=== PATIENT | female | born 1945 | race Caucasian/White ===

== ENCOUNTER 2017-08-12 15:50 | Emergency (ER) | payer MEDICARE, OTHER ==
[2017-08-12 16:22] VITALS: BP 119/83
--- NOTE | 2017-08-12 17:48 | UC ---
Zachary Johnson Natalie, scribed for Blake Martin MD on 08/12/17 at 1748 . Shortness of Breath HPI - HPI Summary HPI Summary: The pt is a 72 y/o F presenting to c/o generalized weakness and SOB starting a week ago. She states, my legs and arms feel like a hundred pounds and everything is draining. The pain is rated /10. Pt additionally c/o neck pain ( under skull), eye pain, and constipation. Pt denies fever body aches, chills, nasal congestion, abdominal pain, melena, hematuria, and LE edema. She has had similar previous episodes due to past neck and shoulder injury. She has hx of asthma and has been using her inhaler more often than usual. The pts prescriptions have been changed a few times in the last month. - History of Current Complaint Stated Complaint: SOB,WEAKNESS Time Seen by Provider: 08/12/17 16:05 Hx Obtained From: Patient Onset/Duration: Lasting Days - started a week ago, Still Present Timing: Constant Current Severity: Moderate Alleviating Factors: Nothing Associated Signs & Symptoms: Positive: Other - POSITIVE: neck pain (under skull) , eye pain, constipation; fever body aches, chills, nasal congestion, abdominal pain, melena, hematuria, and LE edema - Allergy/Home Medications Allergies/Adverse Reactions: Allergies Allergy/AdvReac Type Severity Reaction Status Date / Time Hydromorphone AdvReac Altered Verified 08/12/17 16:26 Mental Status Home Medications: Home Medications Albuterol inh POWDER (NF) [Proair Respiclick] 108 mcg IN PRN 08/12/17 [History] Atorvastatin* [Lipitor 40 MG*] 1 tab PO BEDTIME 08/12/17 [History Confirmed ] Diltiazem XR EXTEND Releas(NF) [Cartia XR (NF)] 120 mg PO DAILY 08/12/17 [ History Confirmed 08/12/17] Gabapentin CAP(*) [Neurontin 100 mg CAP(*)] 1 cap PO BID 08/12/17 [History Confirmed 08/12/17] Lisinopril/HCTZ 20/12.5(NF) [Zestoretic 20/12.5(NF)] 1 tab PO DAILY 08/12/17 [ History Confirmed 08/12/17] metFORMIN* [Glucophage 500 MG TAB *] 1 tab PO DAILY 08/12/17 [History Confirmed 08/12/17] PMH/Surg Hx/FS Hx/Imm Hx Respiratory History: Asthma Other History Of: Negative For: Anticoagulant Therapy - Surgical History Surgery Procedure, Year, and Place: 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 C7 DISC HERNIATION, CERVICAL FUSION - Social History Substance Use Type: None Review of Systems Constitutional: Other - NEGATIVE: fever, chills Eyes: Other - eye pain ENT: Other - NEGATIVE: nasal congestion Respiratory: Shortness Of Breath Gastrointestinal: Other - POSITIVE: constipation; NEGATIVE: abdominal pain, melena Genitourinary: Other - NEGATIVE: hematuria Motor: Weakness All Other Systems Reviewed And Are Negative: Yes Physical Exam Triage Information Reviewed: Yes Appearance: Well-Appearing, No Pain Distress Vital Signs: Initial Vital Signs Temp 98 F 08/12/17 16:18 Pulse 91 08/12/17 16:18 Resp 16 08/12/17 16:18 BP 119/83 08/12/17 16:18 Pulse Ox 97 08/12/17 16:18 Vital Signs Reviewed: Yes Eye Exam: Normal ENT: Positive: Normal ENT inspection Neck: Positive: Supple, Other: - tenderness in upper neck Respiratory: Positive: Other: - CTA, breath sounds present Cardiovascular: Positive: RRR Abdomen Description: Positive: Nontender, Soft Bowel Sounds: Positive: Present Musculoskeletal Exam: Normal Musculoskeletal: Positive: Strength Intact, ROM Intact Neurological: Positive: Other: - normal, sensory/motor intact, A&O x3 Psychological: Positive: Other: - affect/mood appropriate Skin: Positive: Other - warm, color reflects adequate perfusion, dry Diagnostics - EKG Cardiac Rate: NL Cardiac Rhythm: Sinus: Normal - 88 BPM Ectopy: None ST Segment: Normal Shortness of Breath Dx - Course Course Of Treatment: Medications reviewed. Allergies noted. RECOMMENDED ED EVAL. PATIENT AGREED. - Differential Dx/Diagnosis Provider Diagnoses: WEAKNESS. SHORTNESS OF BREATH. NECK PAIN Discharge - Discharge Plan Condition: Stable Disposition: HOME Patient Education Materials: Weakness (ED), Dyspnea (ED), Neck Pain (ED) Referrals: Marietta Jin MD [Primary Care Provider] - Additional Instructions: GO DIRECTLY TO THE EMERGENCY DEPARTMENT FOR FURTHER EVALUATION OF YOUR WEAKNESS , SHORTNESS OF BREATH AND NECK PAIN. The documentation as recorded by the Zachary coffman Natalie accurately reflects the service I personally performed and the decisions made by me, Blake Martin MD.
== END 2017-08-12 16:40 | disposition home or self-care (01) ==
LOC: UCEAST 15:50
DX: R06.02 Shortness of breath (principal); R53.1 Weakness; M54.2 Cervicalgia
CPT/HCPCS: 93005; 99212; G0463

== ENCOUNTER 2017-08-12 16:56 | Emergency (ER) | payer MEDICARE ==
[2017-08-12] MEDS ORDERED: NS 0.9% 500 ML* 500 ML IV ONE (19:32)
[2017-08-12 19:48] LABS: ABS Basophils 0.1 10^3/ul (0-0.2); ABS Eosinophils 0.6 10^3/ul (0-0.6); ABS Lymphocytes 3.2 10^3/ul (1.0-4.8); ABS Monocytes 0.7 10^3/ul (0-0.8); ABS Neutrophils 4.2 10^3/ul (1.5-7.7); ABS Nucleated RBC 0 10^3/ul; Eosinophil % 6.4 % (0-6); Hematocrit 42 % (35-47); Hemoglobin 14.2 g/dl (12.0-16.0); Lymphocyte % 36.7 % (25-47); Mean Corpuscular HGB Conc 34 g/dl (31-36); Mean Corpuscular Hemoglobin 29 pg (27-31); Mean Corpuscular Volume 85 fL (80-97); Mean Platelet Volume 10 um3 (7.4-10.4); Nucleated Red Blood Cells % 0.1; Platelet Count 283 10^3/ul (150-450); Red Blood Count 4.96 10^6/ul (4.0-5.4); Red Cell Distribution Width 14 % (10.5-15); White Blood Count 8.6 10^3/ul (3.5-10.8)
--- NOTE | 2017-08-12 20:29 | RAD ---
Indication: Shortness of breath. 2 views of the chest including dual energy PA views demonstrates no mediastinal shift. Heart is of normal size and configuration. Lung lima appear clear. When compared to previous exam of May 14, 2013 right lower lobe infiltrate is no longer present. IMPRESSION: No active cardiopulmonary disease is noted.
[2017-08-12 20:47] LABS: Urine Appearance Clear; Urine Blood Negative (Negative); Urine Color Yellow; Urine Ketones Negative (Negative); Urine Protein Negative (Negative); Urine Specific Gravity 1.016 (1.010-1.030); Urine Urobilinogen Negative (Negative)
[2017-08-12 21:11] VITALS: BP 118/75
--- NOTE | 2017-08-13 04:40 | ED ---
Riddhi Johnson Julia, scribed for Jayden Diego MD on 08/12/17 at 1914 . Shortness of Breath - HPI Summary HPI Summary: This patient is a 72 year old F presenting to [facility] with a chief complaint of gradually worsening SOB and weakness for the past week. Patient reports dry throat, superficial headache, and sensation of heavy extremities. Patient denies pain cough, cold symptoms, LE edema, recent travel, weight changes, chest pain, n/v/d, and darkening urine. Patient recently switched BP medications from Verapamil to Doxazosin. Patient has hx of thyroid issues and is borderline diabetic. - History of Current Complaint Chief Complaint: EDShortnessOfBreath Time Seen by Provider: 08/12/17 19:06 Hx Obtained From: Patient Onset/Duration: Lasting Weeks Timing: Constant Dyspnea At: Rest Aggrevating Factors: Nothing Alleviating Factors: Nothing - Allergy/Home Medications Allergies/Adverse Reactions: Allergies Allergy/AdvReac Type Severity Reaction Status Date / Time Hydromorphone AdvReac Altered Verified 08/12/17 16:26 Mental Status PMH/Surg Hx/FS Hx/Imm Hx Endocrine/Hematology History: Reports: Hx Diabetes - borderline, Hx Thyroid Disease Denies: Hx Anticoagulant Therapy Cardiovascular History: Reports: Other Cardiovascular Problems/Disorders - THORACIC OUTLET SYNDROME Denies: Hx Congestive Heart Failure Respiratory History: Reports: Hx Asthma - MILD Denies: Other Respiratory Problems/Disorders - DENIES GI History: Denies: Other GI Disorders History: Denies: Hx Renal Disease, Other Problems/Disorders - DENIES Musculoskeletal History: Reports: Other Musculoskeletal History - 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 C7 DISC HERNIATION, CERVICAL FUSION Infectious Disease History: Yes Infectious Disease History: Reports: Hx Hepatitis - when 11 years old Denies: Traveled Outside the [place] in Last 30 Days - Family History Known Family History: Positive: Other - pancreatic CA - Social History Alcohol Use: None Substance Use Type: Reports: None Smoking Status (MU): Never Smoked Tobacco Review of Systems Positive: Other - weight changes. Negative: Fever - cold symptoms Positive: Other - dry mouth Negative: Chest Pain Positive: Shortness Of Breath. Negative: Cough Negative: Vomiting, Diarrhea, Nausea Positive: no symptoms reported Negative: Edema Positive: Headache, Weakness - and "heavy" extremities All Other Systems Reviewed And Are Negative: Yes Physical Exam - Summary Physical Exam Summary: Appearance: Well appearing, no pain distress Skin: warm, dry, reflects adequate perfusion, moist mucous membranes Head/face: normal Eyes: EOMI, [place] ENT: normal, no nasal congestion no thyromegaly Neck: supple, non-tender Respiratory: CTA, breath sounds present Cardiovascular: RRR, pulses symmetrical Abdomen: non-tender, soft Bowel: present Musculoskeletal: normal, strength/ROM intact, no LE edema Neuro: normal, sensory motor intact, A&Ox3 Triage Information Reviewed: Yes Vital Signs On Initial Exam: Initial Vitals Temp Pulse Resp BP Pulse Ox 97.4 F 91 18 134/85 95 08/12/17 17:00 08/12/17 17:00 08/12/17 17:00 08/12/17 17:00 08/12/17 17:00 Vital Signs Reviewed: Yes Diagnostics - Vital Signs Vital Signs Temp Pulse Resp BP Pulse Ox 08/12/17 17:00 97.4 F 91 18 134/85 95 - Laboratory Lab Results: Lab Results 08/12/17 08/12/17 08/12/17 Range/Units 19:36 19:36 19:36 WBC 8.6 (3.5-10.8) 10^3/ul RBC 4.96 (4.0-5.4) 10^6/ul Hgb 14.2 (12.0-16.0) g/dl Hct 42 (35-47) % MCV 85 (80-97) fL MCH 29 (27-31) pg MCHC 34 (31-36) g/dl RDW 14 (10.5-15) % Plt Count 283 (150-450) 10^3/ul MPV 10 (7.4-10.4) um3 Neut % (Auto) 48.4 (38-83) % Lymph % (Auto) 36.7 (25-47) % [place] % (Auto) 7.8 (1-9) % Eos % (Auto) 6.4 H (0-6) % Baso % (Auto) 0.7 (0-2) % Absolute Neuts (auto) 4.2 (1.5-7.7) 10^3/ul Absolute Lymphs (auto) 3.2 (1.0-4.8) 10^3/ul Absolute Monos (auto) 0.7 (0-0.8) 10^3/ul Absolute Eos (auto) 0.6 (0-0.6) 10^3/ul Absolute Basos (auto) 0.1 (0-0.2) 10^3/ul Absolute Nucleated RBC 0 10^3/ul Nucleated RBC % 0.1 D-Dimer, Quantitative (Less Than 230) ng/mL Sodium 135 (133-145) mmol/L Potassium TNP Chloride 104 (101-111) mmol/L Carbon Dioxide 24 (22-32) mmol/L Anion Gap 7 (2-11) mmol/L BUN 30 H (6-24) mg/dL Creatinine 1.01 H (0.51-0.95) mg/dL Est GFR ( Amer) 69.5 (>60) Est GFR (Non-Af Amer) 54.0 (>60) BUN/Creatinine Ratio 29.7 H (8-20) Glucose 113 H (70-100) mg/dL Calcium 9.9 (8.6-10.3) mg/dL Total Bilirubin 0.40 (0.2-1.0) mg/dL AST TNP ALT 17 (7-52) U/L Alkaline Phosphatase 53 (34-104) U/L Troponin I 0.00 (<0.04) ng/mL B-Natriuretic Peptide 13 ( - 100) pg/mL Total Protein 6.8 (6.4-8.9) g/dL Albumin 4.0 (3.2-5.2) g/dL Globulin 2.8 (2-4) g/dL Albumin/Globulin Ratio 1.4 (1-3) Urine Color Urine Appearance Urine pH (5-9) Ur Specific [place] (1.010-1.030) Urine Protein (Negative) Urine Ketones (Negative) Urine Blood (Negative) Urine Nitrate (Negative) Urine Bilirubin (Negative) Urine Urobilinogen (Negative) Ur Leukocyte Esterase (Negative) Urine WBC (Auto) (Absent) Urine RBC (Auto) (Absent) Ur Squamous Epith Cells (Absent) Ur Transition Epith Cell (Absent) Urine Bacteria (Absent) Urine Glucose (Negative) 08/12/17 08/12/17 08/12/17 Range/Units 19:36 20:20 20:20 WBC (3.5-10.8) 10^3/ul RBC (4.0-5.4) 10^6/ul Hgb (12.0-16.0) g/dl Hct (35-47) % MCV (80-97) fL MCH (27-31) pg MCHC (31-36) g/dl RDW (10.5-15) % Plt Count (150-450) 10^3/ul MPV (7.4-10.4) um3 Neut % (Auto) (38-83) % Lymph % (Auto) (25-47) % [place] % (Auto) (1-9) % Eos % (Auto) (0-6) % Baso % (Auto) (0-2) % Absolute Neuts (auto) (1.5-7.7) 10^3/ul Absolute Lymphs (auto) (1.0-4.8) 10^3/ul Absolute Monos (auto) (0-0.8) 10^3/ul Absolute Eos (auto) (0-0.6) 10^3/ul Absolute Basos (auto) (0-0.2) 10^3/ul Absolute Nucleated RBC 10^3/ul Nucleated RBC % D-Dimer, Quantitative < 200 (Less Than 230) ng/mL Sodium (133-145) mmol/L Potassium 4.0 Chloride (101-111) mmol/L Carbon Dioxide (22-32) mmol/L Anion Gap (2-11) mmol/L BUN (6-24) mg/dL Creatinine (0.51-0.95) mg/dL Est GFR ( Amer) (>60) Est GFR (Non-Af Amer) (>60) BUN/Creatinine Ratio (8-20) Glucose (70-100) mg/dL Calcium (8.6-10.3) mg/dL Total Bilirubin (0.2-1.0) mg/dL AST 18 ALT (7-52) U/L Alkaline Phosphatase (34-104) U/L Troponin I (<0.04) ng/mL B-Natriuretic Peptide ( - 100) pg/mL Total Protein (6.4-8.9) g/dL Albumin (3.2-5.2) g/dL Globulin (2-4) g/dL Albumin/Globulin Ratio (1-3) Urine Color Yellow Urine Appearance Clear Urine pH 5.0 (5-9) Ur Specific [place] 1.016 (1.010-1.030) Urine Protein Negative (Negative) Urine Ketones Negative (Negative) Urine Blood Negative (Negative) Urine Nitrate Negative (Negative) Urine Bilirubin Negative (Negative) Urine Urobilinogen Negative (Negative) Ur Leukocyte Esterase 3+ H (Negative) Urine WBC (Auto) 3+(>20/hpf) H (Absent) Urine RBC (Auto) Trace(0-2/hpf) (Absent) Ur Squamous Epith Cells Present H (Absent) Ur Transition Epith Cell Present H (Absent) Urine Bacteria Absent (Absent) Urine Glucose Negative (Negative) Result Diagrams: 08/12/17 19:36 08/12/17 20:20 Lab Statement: Any lab studies that have been ordered have been reviewed, and results considered in the medical decision making process. - Radiology CXR Radiology Interpretation Completed By: Radiologist - No active cardiopulmonary disease is noted. ED Physician has reviewed this report. - EKG 19:33 Cardiac Rate: NL - at 86 BPM EKG Rhythm: Sinus Rhythm ST Segment: Normal EKG Interpretation: nml axis, nml interval, poor R wave progression Re-Evaluation - Re-Evaluation 1 Re-Evaluation Time: 20:16 Change: Improved - with IV fluids Course/Dx - Course Course Of Treatment: Patient presents with gradually worsening SOB and weakness for the past week. Patient reports dry throat, superficial headache, and sensation of heavy extremities. Pt had recent change in BP medication. EKG is unremarkable. CXR is unremarkable. Labs are unremarkable. Pt was given IV fluids and improved. Slight bump in Cr, likely dehydration is causative. ? from her ACEi/HCTZ combo. Patient sent home with dx of mild dehydration and medication side effect to f/u closely with PMD. - Diagnoses Provider Diagnoses: Mild dehydration, Medication side effect Discharge - Discharge Plan Condition: Good Disposition: HOME Patient Education Materials: Dehydration (ED) Referrals: Marietta Jin MD [Primary Care Provider] - Additional Instructions: Drink plenty of fluids. Call your doctor in the morning and have them reevaluate your medications. They may be exacerbating today's symptoms. Return if worse, fevers, vomiting, new symptoms or other concerns. The documentation as recorded by the Riddhi coffman Julia accurately reflects the service I personally performed and the decisions made by me, Jayden Diego MD.
== END 2017-08-12 21:21 | disposition home or self-care (01) ==
LOC: ED 16:56
DX: E86.0 Dehydration (principal); T50.905A Adverse effect of unspecified drugs, medicaments and biological substances, initial encounter; Y92.9 Unspecified place or not applicable; G54.0 Brachial plexus disorders; J45.909 Unspecified asthma, uncomplicated
CPT/HCPCS: 36415; 71046; 80053; 81003; 81015; 83880; 84484; 85025; 85379; 87086; 93005; 96360; 99282

== ENCOUNTER 2023-02-17 06:59 | Observation (INO) ==
[~2023-02-17 06:59] MED LIST: Buffered Lidocaine 1% SYRIN 1 ml INTRADERM ONE; Dexamethasone IV 4 MG/ML VIAL 1 ml VIAL ONE; Famotidine IV 10 MG/ML 2 ml VIAL (20 mg) IV ONE; Glycopyrrolate IV 0.2 MG/ML 1 ML VIAL ONE; Lactated Ringers 1000 ml BAG 1,000 ML IV SCH; Lidocaine 2% PF 5 ML VIAL ONE; Midazolam 2 mg/2 ml VIAL 1 mg/ml 2 ml VIAL (2 mg) ONE; Ondansetron 4 mg VIAL 2 MG/ML 2 ml VIAL ONE; Phenylephrine IV 10 MG/ML 1 ml VIAL ONE; Propofol 0 MG/0 ML BTL ONE; fentaNYL 100 mcg/2 ml 50 MCG/ML VIAL ONE
[2023-02-17] MEDS ORDERED: ROPIVACAINE 5 MG/ML 30 ML BTL (0.5%) ONE (08:08)
[2023-02-17] MEDS ORDERED: Propofol 10 MG/ML 20 ML BTL ONE (08:15)
[2023-02-17] MEDS ORDERED: Rocuronium 50 mg VIAL 10 mg/ml 5 ml VIAL (50 mg) ONE ×2 (08:15→09:57)
[2023-02-17 08:16] LABS: Rapid COVID-19 Molecular Undetected (Undetected)
[2023-02-17] MEDS ORDERED: ceFAZolin 2 GM in NS PREMIX 2 GM/100 ML BAG IVPB ONE (08:18)
[2023-02-17] MEDS ORDERED: Famotidine IV 10 MG/ML 2 ml VIAL (20 mg) ONE (08:28)
[2023-02-17] MEDS ORDERED: Naloxone 0.4 mg VIAL 0.4 mg/ml 1 ml VIAL IV PRN (09:00)
[2023-02-17] MEDS ORDERED: fentaNYL 100 mcg/2 ml 50 MCG/ML VIAL ONE ×4 (09:50→14:01)
[2023-02-17] MEDS ORDERED: Acetaminophen IV 1 GM/100ML 1,000 MG/100 ML BAG IV ONE (09:58)
[2023-02-17] MEDS ORDERED: Phenylephrine 40 mcg/mL 10mL (400mcg) SYRINGE ONE (10:06)
[2023-02-17] MEDS ORDERED: Magnesium Hydroxide LIQ 30 ML UDC PO PRN (10:50)
[2023-02-17] MEDS ORDERED: Ondansetron 4 mg VIAL 2 MG/ML 2 ml VIAL IV PRN (10:50)
[2023-02-17] MEDS ORDERED: Lactulose 30 ml UDC PO PRN (10:50)
[2023-02-17] MEDS ORDERED: Morphine 2 MG/ML SYRINGE IV PRN (10:50)
[2023-02-17] MEDS ORDERED: Ondansetron ODT 4 mg TAB 4 MG TAB PO PRN (10:50)
[2023-02-17] MEDS: fentaNYL 100 mcg/2 ml 50 MCG/ML VIAL IV PRN ×6 (12:11→14:02)
[2023-02-17] MEDS ORDERED: Morphine 4 MG/ML VIAL (1 ml) ONE (14:08)
[2023-02-17] MEDS: Morphine 4 MG/ML VIAL (1 ml) IV PRN ×2 (14:14→14:39)
[2023-02-17] MEDS ORDERED: Albuterol HFA INHALER 8 gm MDI INH PRN (15:45)
[2023-02-17] MEDS: Lactated Ringers 1000 ml BAG 1,000 ML IV SCH (15:53)
[2023-02-17] MEDS: ceFAZolin 1 GM ADVAN 1 GM in NS 0.9% 50 ML 50 ML IVPB SCH (18:58)
[2023-02-17] MEDS ORDERED: Prochlorperazine 5 mg/ml 2 ml VIAL (10 mg) IV PRN (19:52)
[2023-02-17] MEDS: Magnesium Hydroxide LIQ 30 ML UDC PO SCH (21:16)
[2023-02-18] MEDS: Lactated Ringers 1000 ml BAG 1,000 ML IV SCH (02:24)
[2023-02-18] MEDS: ceFAZolin 1 GM ADVAN 1 GM in NS 0.9% 50 ML 50 ML IVPB SCH ×2 (02:25→10:20)
[2023-02-18 07:25] LABS: Hemoglobin 12.4 g/dL (11.5-14.3); Mean Platelet Volume 8.5 fL (7.5-11.2); Platelet Count 174 10^3/uL (150-450)
[2023-02-18 07:38] LABS: Calcium 8.7 mg/dL (8.6-10.3); Creatinine, Serum 1.28 mg/dL (0.51-0.95); Potassium 4.1 mmol/L (3.5-5.0); eGFR CKD-EPI 43.4 (>60)
[2023-02-18] MEDS ORDERED: Vitamin THERAPEUTIC TAB PO SCH (09:00)
[2023-02-18] MEDS ORDERED: CMCS: FLUTICAS/UMECLI/VILANT 200-62.5-25 MDI (NF) INH SCH (09:00)
[2023-02-18] MEDS: Magnesium Hydroxide LIQ 30 ML UDC PO SCH (10:22)
[2023-02-18 10:32] VITALS: BP 108/65
== END 2023-02-18 13:30 | disposition home or self-care (01) ==
LOC: OR 06:59 → SSU 06:59 → EDSTATUS 11:00
PROVIDERS: ADMIT Orthopaedic Surgery Adult Reconstructive Orthopaedic Surgery; ATTEND Orthopaedic Surgery Adult Reconstructive Orthopaedic Surgery

== ENCOUNTER 2024-03-31 16:02 | Inpatient (IN) ==
[2024-03-31 17:06] LABS: Urine Appearance Extra Turbid; Urine Bilirubin Negative (Negative); Urine Blood 2+ (Negative); Urine Glucose Negative (Negative); Urine Ketones Negative (Negative); Urine Nitrite 2+ (Negative); Urine Protein 2+ (>=100 mg/dL) (Negative); Urine Specific Gravity 1.011 (1.002-1.030); Urine Urobilinogen Negative (Negative)
[2024-03-31 17:09] LABS: Urine Bacteria 2+ /HPF (Absent); Urine Red Blood Cell 3+(>10/hpf) /HPF (0-Trace); Urine Renal Epithelial Cells Present /HPF (Absent); Urine Squamous Epithelial Cell Present /HPF (Absent); Urine White Blood Cell 3+(>20/hpf) /HPF (0-Trace)
[2024-03-31 17:12] LABS: Urine Color Yellow
[2024-03-31] MEDS: NS 0.9% 1000 ml BAG 1,000 ML IV ONE (18:23)
[2024-03-31] MEDS: cefTRIAXone 1 gm/50 mL D5W 1 GM/50 ML BAG IV ONE (18:28)
[2024-03-31 18:34] LABS: ABS Basophils 0.1 10^3/uL (0.0-0.1); ABS Eosinophils 0.5 10^3/uL (0.0-0.5); ABS Lymphocytes 2.9 10^3/uL (1.0-4.8); ABS Monocytes 1.3 10^3/uL (0.0-0.9); ABS Neutrophils 8.8 10^3/uL (1.5-7.6); ABS Nucleated RBC 0.03 10^3/ul; Eosinophil % 3.4 %; Hematocrit 42.5 % (35-45); Hemoglobin 14.2 g/dL (11.5-14.3); Lymphocyte % 21.1 %; Mean Corpuscular Hemoglobin 27.5 pg (27-33); Mean Corpuscular Hgb Conc 33.4 g/dL (31-36); Mean Corpuscular Volume 82.5 fL (80-97); Nucleated Red Blood Cells % 0.2 %/100WBC (0.0-0.8); Platelet Count 160 10^3/uL (150-450); Red Blood Count 5.15 10^6/uL (3.63-4.92); Red Cell Distribution Width 15.9 % (12-17); White Blood Count 13.6 10^3/uL (3.8-11.8)
[2024-03-31 19:12] LABS: Albumin 3.7 g/dL (3.2-5.2); Albumin/Globulin Ratio 1.5 (1-3); C Reactive Protein 152.01 mg/L (<8.01); Calcium 10.4 mg/dL (8.6-10.3); Creatinine, Serum 1.45 mg/dL (0.51-0.95); Globulin 2.5 g/dL (2-4); Potassium 3.7 mmol/L (3.5-5.0); Total Bilirubin 0.7 mg/dL (0.2-1.0); Total Protein 6.2 g/dL (6.4-8.9); eGFR CKD-EPI 37.2 (>60)
[2024-03-31] MEDS: Lactated Ringers 1000 ml BAG 1,000 ML IV ONE (22:17)
[2024-03-31] MEDS: Iodixanol (CONTRAST) 320 MG/ML 100 ML SDV IV ONE (23:59)
[2024-04-01] MEDS: Morphine 4 MG/ML VIAL (1 ml) IV ONE (00:37)
[2024-04-01] MEDS: Morphine 4 MG/ML VIAL (1 ml) IV PRN (03:30)
[2024-04-01] MEDS: Albuterol HFA INHALER 8 gm MDI INH PRN (03:58)
[2024-04-01] MEDS: Heparin 5000 UNITS/ML 1 mL VIAL SUBCUT SCH (07:07)
[2024-04-01] MEDS: Ondansetron 4 mg VIAL 2 MG/ML 2 ml VIAL IV ONE (07:08)
[2024-04-01] MEDS: Lactated Ringers 1000 ml BAG 1,000 ML IV SCH (07:08)
[2024-04-01] MEDS: CMCS: Solifenacin 5 mg TAB (NF) PO SCH (08:51)
[2024-04-01 09:32] LABS: Hematocrit 37.2 % (35-45); Hemoglobin 12.3 g/dL (11.5-14.3); Mean Corpuscular Hemoglobin 27.3 pg (27-33); Mean Corpuscular Volume 82.9 fL (80-97); Mean Platelet Volume 8.5 fL (7.5-11.2); Platelet Count 141 10^3/uL (150-450); Red Blood Count 4.48 10^6/uL (3.63-4.92); Red Cell Distribution Width 16.2 % (12-17)
[2024-04-01 10:09] LABS: ABS Basophils 0.1 10^3/uL (0.0-0.1); ABS Eosinophils 0.3 10^3/uL (0.0-0.5); ABS Lymphocytes 2.7 10^3/uL (1.0-4.8); ABS Monocytes 1.7 10^3/uL (0.0-0.9); ABS Neutrophils 7.2 10^3/uL (1.5-7.6); ABS Nucleated RBC 0.01 10^3/ul; Eosinophil % 2.5 %; Lymphocyte % 22.3 %; Nucleated Red Blood Cells % 0.1 %/100WBC (0.0-0.8)
[2024-04-01 10:10] LABS: Calcium 8.9 mg/dL (8.6-10.3); Creatinine, Serum 1.43 mg/dL (0.51-0.95); Potassium 3.8 mmol/L (3.5-5.0); eGFR CKD-EPI 37.8 (>60)
[2024-04-01] MEDS: cefTRIAXone 1 gm/50 mL D5W 1 GM/50 ML BAG IV SCH (18:15)
[2024-04-01] MEDS ORDERED: Rosuvastatin 40 mg TAB (NF) PO SCH (21:00)
[2024-04-02 06:57] LABS: ABS Basophils 0.1 10^3/uL (0.0-0.1); ABS Eosinophils 0.9 10^3/uL (0.0-0.5); ABS Lymphocytes 2.3 10^3/uL (1.0-4.8); ABS Monocytes 1.2 10^3/uL (0.0-0.9); ABS Neutrophils 4.9 10^3/uL (1.5-7.6); Eosinophil % 9.6 %; Hematocrit 32.9 % (35-45); Hemoglobin 11.1 g/dL (11.5-14.3); Lymphocyte % 24.3 %; Mean Corpuscular Hemoglobin 27.9 pg (27-33); Mean Corpuscular Hgb Conc 33.6 g/dL (31-36); Mean Corpuscular Volume 82.9 fL (80-97); Mean Platelet Volume 8.5 fL (7.5-11.2); Nucleated Red Blood Cells % 0.1 %/100WBC (0.0-0.8); Platelet Count 117 10^3/uL (150-450); Red Blood Count 3.98 10^6/uL (3.63-4.92); Red Cell Distribution Width 15.9 % (12-17); White Blood Count 9.3 10^3/uL (3.8-11.8)
[2024-04-02 07:37] LABS: Albumin 2.9 g/dL (3.2-5.2); Albumin/Globulin Ratio 1.4 (1-3); Calcium 8.8 mg/dL (8.6-10.3); Creatinine, Serum 1.57 mg/dL (0.51-0.95); Globulin 2.1 g/dL (2-4); Potassium 4.6 mmol/L (3.5-5.0); Total Bilirubin 0.3 mg/dL (0.2-1.0); eGFR CKD-EPI 33.8 (>60)
[2024-04-02] MEDS ORDERED: Benzocaine/Menthol LOZ PO PRN (15:49)
[2024-04-02] MEDS: Albuterol (2.5 MG) 0.5 % CONC 0.5 ML NEB.SOLN INH ONE (19:10)
[2024-04-02] MEDS: Albuterol 2.5mg/3 ml (0.083%) NEB.SOLN INH ONE (19:11)
[2024-04-03] MEDS: Albuterol 2.5mg/3 ml (0.083%) NEB.SOLN INH ONE (09:47)
[2024-04-03] MEDS: Magnesium Hydroxide LIQ 30 ML UDC PO PRN (22:40)
[2024-04-03] MEDS: Albuterol 2.5mg/3 ml (0.083%) NEB.SOLN INH PRN (23:20)
[2024-04-04 06:50] LABS: Albumin/Globulin Ratio 1.4 (1-3); Calcium 9.3 mg/dL (8.6-10.3); Creatinine, Serum 1.2 mg/dL (0.51-0.95); Globulin 2.1 g/dL (2-4); Potassium 4.7 mmol/L (3.5-5.0); Total Bilirubin 0.2 mg/dL (0.2-1.0); Total Protein 5.1 g/dL (6.4-8.9); eGFR CKD-EPI 46.6 (>60)
[2024-04-04] MEDS: Albuterol/Ipratropium NEB.SOL (2.5/0.5 MG) 3 ML NEB.SOLN INH SCH (15:02)
[2024-04-04] MEDS: Senna TAB 8.6 mg TAB PO SCH (20:56)
[2024-04-05 06:54] LABS: Calcium 9.7 mg/dL (8.6-10.3); Creatinine, Serum 1.3 mg/dL (0.51-0.95); Potassium 4.8 mmol/L (3.5-5.0); eGFR CKD-EPI 42.4 (>60)
[2024-04-05 09:56] VITALS: BP 121/67
== END 2024-04-05 12:15 | disposition home or self-care (01) | DRG 871 ==
LOC: ED 16:02 → EDHOLD 04-01 02:15 → SUATTDRO 04-01 02:15 → MED 04-01 15:34
PROVIDERS: ADMIT Internal Medicine; ATTEND Internal Medicine